=== PATIENT | female | born 1970 | race American Indian/Alaskan Native ===

== ENCOUNTER 2016-12-12 22:22 | Emergency (ER) | payer SELFPAY ==
[2016-12-13 00:06] LABS: Hematocrit 33.4 % (30.3-42.9); Hemoglobin 11.4 gm/dl (10.1-14.3); Mean Corpuscular HGB Conc 34 % (30-34); Mean Corpuscular Hemoglobin 30 pg (28-32); Mean Corpuscular Volume 87 fl (79-97); Platelet Count 245 K/mm3 (140-440); Red Blood Count 3.85 M/mm3 (3.65-5.03); Red Cell Distribution Width 13.6 % (13.2-15.2); White Blood Count 5.6 K/mm3 (4.5-11.0)
[2016-12-13 00:28] LABS: BUN/Creatinine Ratio 17.27; Calcium 8.6 mg/dL (8.4-10.2); Chloride 102.4 mmol/L (98-107); Potassium 4.2 mmol/L (3.6-5.0)
[2016-12-13 01:46] VITALS: BP 135/82
[2016-12-13 02:14] LABS: Urine Drugs of Abuse Note Disclamer
[2016-12-13 02:42] LABS: Bacteria,Urine 2+ /HPF (Negative); Bilirubin,Urine NEG (Negative); Blood,Urine NEG (Negative); Ketones,Urine NEG (Negative); Leukocyte Esterase,Urine NEG (Negative); Nitrite,Urine NEG (Negative); Protein,Urine <15 mg/dL mg/dL (Negative); Urobilinogen,Urine < 2.0 mg/dL (<2.0)
== END 2016-12-13 04:20 | disposition left against medical advice (07) ==
LOC: ED 22:22
DX: R51 Headache (principal); H92.03 Otalgia, bilateral; M54.2 Cervicalgia; Z53.21 Procedure and treatment not carried out due to patient leaving prior to being seen by health care provider
CPT/HCPCS: 36415; 80048; 80307; 81001; 85027